=== PATIENT | female | born 1945 | race African-American/Black ===

== ENCOUNTER 2016-12-13 23:45 | Emergency (ER) | payer SELFPAY ==
[~2016-12-13] VITALS: Ht 162.6 cm; Wt 90.7 kg
[2016-12-13 23:50] VITALS: BP 174/80
--- NOTE | 2016-12-13 23:56 | NUR ---
PT TAKEN TO BED 7
--- NOTE | 2016-12-14 00:05 | NUR ---
Dr. Delgado evaluating patient at bedside.
--- NOTE | 2016-12-14 00:09 | NUR ---
71Y/F PT. BIBA TO ED WITH GENERALIZED WEAKNESS. PER EMS;PD FOUND PT. LAY ON THE STEET, NO LOC. BS 131 ON SCENE. HX. COPD, STROKE, HTN.. PT DENIES N/V/D; SKIN IS PINK/WARM/DRY; AAOX4 WITH EVEN AND STEADY GAIT; LUNGS CLEAR BL; HR EVEN AND REGULAR; PT DENIES ANY FEVER, CP, SOB, OR COUGH AT THIS TIME; PATIENT STATES PAIN OF 0/10 AT THIS TIME; VSS; PATIENT POSITIONED FOR COMFORT; HOB ELEVATED; BEDRAILS UP X2; BED DOWN. ER MD MADE AWARE OF PT STATUS.
--- NOTE | 2016-12-14 01:02 | NUR ---
Patient appears to be resting comfortably in bed. Vital Signs within normal limits. Respirations even and unlabored.
[2016-12-14 01:07] VITALS: BP 101/81
== END 2016-12-14 01:20 | disposition home or self-care (01) ==
LOC: MED 23:45
DX: R53.1 Weakness (principal); R42 Dizziness and giddiness